=== PATIENT | male | born 1940 | race Caucasian/White ===

== ENCOUNTER 2022-09-05 01:47 | Emergency (ER) | payer MEDICARE, BC, SELFPAY ==
[2022-09-05 01:53] VITALS: BP 162/95; PULSE 57; RESP 18; TEMP 36.2; O2SAT 98; BMI 32.1
--- NOTE | 2022-09-05 02:01 | CRLHL7_ITS ---
For Patients: As a result of the Cures Act, medical imaging exams and procedure reports are released immediately into your electronic medical record. You may view this report before your referring provider. If you have questions, please contact your health care provider. INDICATION: Fall, impact right ear area, head injury TECHNIQUE: CT Head without i.v. contrast. Coronal and sagittal reformats were obtained. COMPARISON: None FINDINGS: CSF space: Unremarkable for age. Brain: No evidence of mass, acute infarction or hemorrhage is seen. No mass-effect or midline shift is seen. Mild diffuse cortical atrophy is noted. The brain parenchyma is otherwise normal in appearance with preservation of the hicks-white matter junction. Calvarium: The visualized paranasal sinuses are well aerated. The mastoid air cells are clear. The visualized orbits are grossly unremarkable. The calvarium is unremarkable in appearance with no fractures identified. IMPRESSION: 1. No evidence of acute infarction, intracranial hemorrhage, or mass-effect seen. Please note that all CT scans at this facility use dose modulation, iterative reconstruction, and/or weight-based dosing when appropriate to reduce radiation dose to as low as reasonably achievable. Dictated by: Robby Gipson MD @ 09/05/2022 02:57:29 (Electronically Signed)
--- NOTE | 2022-09-05 02:07 | ED.GENADULT ---
HPI - General Adult General Chief complaint: Laceration/Wound Stated complaint: fell out of bed hit face Time Seen by Provider: 09/05/22 01:50 Source: patient Mode of arrival: ambulatory Limitations: no limitations History of Present Illness HPI narrative: Generally healthy 82-year-old male presents today with laceration to the right side of the face. States that he was sleeping and fell out of bed. He states this has never happened to him before. He thinks that he was dreaming. On the way down to the ground he hit his head on the sharp corner of his bedside table. Patient does not take any medications, is not on any blood thinners. He is complaining of a headache. He denies any neck pain. Denies injury to the extremities. Past medical history significant for prostate cancer in remission, multiple joint surgeries. Related Data Home Medications Medication Instructions Recorded Confirmed No Known Home Medications 09/05/22 09/05/22 Allergies Allergy/AdvReac Type Severity Reaction Status Date / Time No Known Drug Allergies Allergy Verified 09/05/22 01:56 Review of Systems Status of ROS: Reports: 6 or more systems reviewed and unremarkable except as noted in History and below [facility] Social History Smoking Status: Never smoker Do you use any of these nicotine containing products: None How often do you have a drink containing alcohol: never How often do you have six or more drinks on one occasion: Never AUDIT-C Alcohol total score: 0 Non-prescribed substance use: denies use Exam Narrative: Exam Narrative: Overweight, well-developed patient in no acute distress. Alert and oriented x3. Answers questions appropriately. Mood and affect are appropriate. Thoughts are goal oriented and rational. No tangential or magical thinking noted. Patient speaks in full sentences without needing to catch his breath. Speech is not slurred or pressured. HEENT: Normocephalic. Pupils are equally round reactive to light. Extraocular muscles are intact. Conjunctivae are moist without any icterus noted. Moist mucous membranes. No trauma noted to the inside of the mouth. Neck is soft without discomfort. He has no tenderness to palpation of the cervical spine. He has full range of motion with flexion, extension, side way bending and rotation without any pain. Patient has a large v-shaped laceration to the anterior ear that extends from the top of the year all the way to the mid tragus there is a flap of skin there. He has another laceration anterior to the ear lobe. Both lacerations penetrate through the dermis into the subcutaneous tissue but do not penetrate through the subcutaneous tissue. Skin: Well perfused without any obvious rashes. Extremities: No acute ecchymosis or abrasions noted. He ambulates without difficulty. Const: Vital Signs, click to edit/add: Vital Signs - 24 hr 09/05/22 01:53 09/05/22 02:54 Temperature 97.1 F L Pulse Rate [Pulse Oximeter] 57 L 63 Respiratory Rate 18 16 Blood Pressure [Le ft Upper Arm] 162/95 H 147/89 H Pulse Oximetry 98 95 Oxygen Delivery Me thod Room Air Room Air Course Course Hospital Course: Head CT was ordered. Lacerations were anesthetized with 1% lidocaine. Twelve running sutures were placed on the superior laceration, 5 interrupted sutures were placed on the lower laceration. All with 4-0 Ethilon. Patient tolerated the procedure well. Head CT did not show any evidence of intracranial trauma. Vital Signs Vital signs: Initial Vital Signs Temperature 97.1 F L 09/05/22 01:53 Temperature Source Temporal Artery Scan 09/05/22 01:53 Pulse Rate 57 L 09/05/22 01:53 Respiratory Rate 18 09/05/22 01:53 Blood Pressure 162/95 H 09/05/22 01:53 Blood Pressure Mean 117 H 09/05/22 01:53 Blood Pressure Position Supine 09/05/22 01:53 Pulse Oximetry 98 09/05/22 01:53 Oxygen Delivery Method Room Air 09/05/22 01:53 Vital Signs Temperature 97.1 F L 09/05/22 01:53 Pulse Rate 57 L 09/05/22 01:53 Respiratory Rate 18 09/05/22 01:53 Blood Pressure 162/95 H 09/05/22 01:53 Pulse Oximetry 98 09/05/22 01:53 Oxygen Delivery Method Room Air 09/05/22 01:53 Temperature 97.1 F L 09/05/22 01:53 Pulse Rate 63 09/05/22 02:54 Respiratory Rate 16 09/05/22 02:54 Blood Pressure 147/89 H 09/05/22 02:54 Pulse Oximetry 95 09/05/22 02:54 Oxygen Delivery Method Room Air 09/05/22 02:54 Medical Decision Making [facility] Narrative Medical decision making narrative: 82-year-old male status post fall with 2 large lacerations to the anterior ear. We discussed wound hygiene, signs and symptoms of infection, reasons for follow-up, and suture removal in approximately 1 week with his primary care provider. We discussed the possibility of a concussion and concussion cares. Patient and had no other questions. Imaging Data CT scan - head: Attestation: I have reviewed the pertinent imaging results. Radiologist's impression: TECHNIQUE: CT Head without i.v. contrast. Coronal and sagittal reformats were obtained. COMPARISON: None FINDINGS: CSF space: Unremarkable for age. Brain: No evidence of mass, acute infarction or hemorrhage is seen. No mass-effect or midline shift is seen. Mild diffuse cortical atrophy is noted. The brain parenchyma is otherwise normal in appearance with preservation of the hicks-white matter junction. Calvarium: The visualized paranasal sinuses are well aerated. The mastoid air cells are clear. The visualized orbits are grossly unremarkable. The calvarium is unremarkable in appearance with no fractures identified. IMPRESSION: 1. No evidence of acute infarction, intracranial hemorrhage, or mass-effect seen. Discharge Plan Discharge Clinical Impression: Laceration, Fall Patient Disposition: Home, Self-Care Condition: Improved Additional Instructions: Keep the ear clean and dry. Okay to shower like he normally would but do not soak the lacerations such as going swimming. Watch for signs of infection which include redness of the area, draining of pus or worsening pain. If this occurs follow-up with your doctor right away or return to the ER. Follow-up with your primary care provider to have your sutures removed in approximately 1 week. Okay to take Tylenol for headaches. Prescriptions: No Action No Known Home Medications Follow Up/Referrals: Timmy Nova MD [Primary Care Provider] - Stand Alone Forms: [employer] Instructions
[2022-09-05 02:54] VITALS: BP 147/89; PULSE 63; RESP 16; O2SAT 95
--- NOTE | 2022-09-05 02:56 | PC.NURSE ---
bacitracin and dressing applied to sutured laceration
== END 2022-09-05 03:19 | disposition home or self-care (01) ==
PROVIDERS: Emergency Provider Family Medicine; PCP Internal Medicine
DX: S01.81XA Laceration without foreign body of other part of head, initial encounter (principal); W06.XXXA Fall from bed, initial encounter
CPT/HCPCS: 12001; 70450; 99283; 99284

== ENCOUNTER 2023-02-15 15:24 | Emergency (ER) | payer MEDICARE, BC, SELFPAY ==
[2023-02-15 15:35] VITALS: BP 128/104; PULSE 81; RESP 16; O2SAT 93; BMI 31.3
--- NOTE | 2023-02-15 15:41 | ED.GENADULT ---
HPI - General Adult General Chief complaint: Abdominal Pain Stated complaint: Bowel obstruction Time Seen by Provider: 02/15/23 15:41 History of Present Illness HPI narrative: abdominal pain all over. I feel uncomfortable feeling bloated . maybe 1 week per patient without bowel movement. not passing gas. no nausea or vomiting. unable to eat and drinking liquids only a little. 82-year-old man presenting to the emergency department with concern of abdominal pain all over. Has not had a bowel movement and says he has not passed any gas over the last week. Presented initially to clinic and primary care initiated evaluation with abdominal x-rays. Concern for ileus or bowel obstruction as discussed with us. I have reviewed these images. He does endorse having also some difficulty passing urine. Does not seem to want to come out unless he sits but then not as much as he might expect. Very little oral intake. No fever. Not really any nausea and no vomiting. Does have a history of prior abdominal surgeries, gestures he thinks a right-sided inguinal herniorrhaphy and did also have treatment for prostate cancer with prostatectomy. Related Data Home Medications Medication Instructions Recorded Confirmed ferrous sulfate 325 mg (65 mg 325 mg PO DAILY 02/15/23 02/15/23 iron) tablet (Iron (ferrous sulfate)) Allergies Allergy/AdvReac Type Severity Reaction Status Date / Time No Known Drug Allergies Allergy Verified 02/15/23 17:19 Review of Systems Status of ROS: Reports: 6 or more systems reviewed and unremarkable except as noted in History and below [facility] Medical History Abdominal pain ?R10.9 - Unspecified abdominal pain (ICD-10) Squamous cell carcinoma Social History Smoking Status: Never smoker Do you use any of these nicotine containing products: None How often do you have a drink containing alcohol: never How often do you have six or more drinks on one occasion: Never AUDIT-C Alcohol total score: 0 Non-prescribed substance use: denies use Little interest or pleasure in doing things: not at all Feeling down, depressed, or hopeless: not at all Exam Narrative: Exam Narrative: Pleasant. Transitions with apparent discomfort. Is breathing easily. Lungs are clear. Heart in regular rate and rhythm. No murmur rub or gallop appreciated. Abdomen with distant bowel sounds. Diffusely tympanitic. Moderately tender diffusely but more so in the left suprapubic area. Moving all extremities without difficulty. No edema. Const: Vital Signs, click to edit/add: Vital Signs - 24 hr 02/15/23 15:35 02/15/23 17:12 02/15/23 18:15 Temperature 98.6 F Pulse Rate [Pulse Oximeter] 81 60 67 Respiratory Rate 16 16 16 Blood Pressure Blood Pressure [Ri ght Upper Arm] 128/104 H 115/84 146/89 H Pulse Oximetry 93 93 90 Oxygen Delivery Me thod Room Air Room Air Room Air 02/15/23 18:17 Temperature Pulse Rate [Pulse Oximeter] Respiratory Rate 16 Blood Pressure 146/89 H Blood Pressure [Ri ght Upper Arm] Pulse Oximetry 91 Oxygen Delivery Me thod Documenting provider has reviewed patient's vital signs: yes Course Vital Signs Vital signs: Initial Vital Signs Pulse Rate 81 02/15/23 15:35 Respiratory Rate 16 02/15/23 15:35 Blood Pressure 128/104 H 02/15/23 15:35 Blood Pressure Mean 112 H 02/15/23 15:35 Blood Pressure Position Sitting 02/15/23 15:35 Pulse Oximetry 93 02/15/23 15:35 Oxygen Delivery Method Room Air 02/15/23 15:35 Vital Signs Pulse Rate 81 02/15/23 15:35 Respiratory Rate 16 02/15/23 15:35 Blood Pressure 128/104 H 02/15/23 15:35 Pulse Oximetry 93 02/15/23 15:35 Oxygen Delivery Method Room Air 02/15/23 15:35 Temperature 98.6 F 02/15/23 18:15 Pulse Rate 67 02/15/23 18:15 Respiratory Rate 16 02/15/23 18:17 Blood Pressure 146/89 H 02/15/23 18:17 Pulse Oximetry 91 02/15/23 18:17 Oxygen Delivery Method Room Air 02/15/23 18:15 Medications Administered Medications: Discontinued Medications Generic Name Dose Route Start Last Admin Trade Name Freq PRN Reason Stop Dose Admin Sodium Chloride 1,000 mls @ 1,000 mls/hr 02/15/23 15:57 02/15/23 18:18 0.9 % Sodium Chloride 1000 Ml IV 02/15/23 16:56 Infused .Q1H ONE Infusion Lorazepam 0.25 mg 02/15/23 18:55 02/15/23 19:15 Lorazepam 2 Mg/Ml Inj IVP 02/15/23 18:56 0.25 mg ONCE ONE Administration Morphine Sulfate 4 mg 02/15/23 15:57 02/15/23 16:19 Morphine 4 Mg/Ml Inj IVP 02/15/23 15:58 4 mg ONCE ONE Administration Medical Decision Making MDM Narrative Medical decision making narrative: Reviewed x-rays by my read looks to have moderately dilated colon diffusely. Postoperative changes about the prostate are also noted. Did feel he could use some pain medication. Given L normal saline as well as 4 mg morphine. Following administration of morphine pain is improved but did show some brief bradycardia. Will need to go to contrasted CT abdomen and pelvis for better clarification. Technique: Volumetric multidetector CT images of the abdomen and pelvis were obtained after the administration of intravenous contrast. 90 cc Isovue 370 low osmolar intravenous contrast Comparison: None available. Findings: There is basilar atelectasis and parenchymal scar. There are cystic changes of the liver with moderate hepatomegaly and hepatic steatosis. The portal vein is patent. The gallbladder is unremarkable without evidence of radiopaque calculus. There is no significant common biliary ductal dilatation or abrupt cut off. The spleen is normal in enhancement and size. There is an intrathoracic stomach with mild thickening of the gastric antrum gastric rugal folds. There is moderate pancreatic atrophy. The adrenal glands are unremarkable. The kidneys demonstrate extensive parapelvic cystic changes with otherwise preserved cortical medullary differentiation. There is no distal obstructive calculus. There is marked focal sick and pericolonic inflammation of the mid sigmoid colon with focal stricture. There is marked distention of the proximal colon with pseudo pneumatosis in the cecum. The appendix is unremarkable. There is no significant mesenteric, retroperitoneal, or pelvic sidewall lymph nodes. The aorta is nonaneurysmal. There is no significant atherosclerotic disease appreciated. There is prior prostatectomy. There is no free fluid or free air. There is a small fat containing umbilical hernia. The lumbar vertebral body heights are grossly maintained with endplate Schmorl`s defects and subchondral cystic changes. Degenerative changes of the sacroiliac joints are appreciated. Impression: Marked focal thickening and pericolonic inflammation of the midsigmoid colon with demonstration of a stricture. There is marked distension of the proximal colon likely representing a large bowel obstruction. Overall, findings are concerning for a developing colonic malignancy versus a developing inflammatory stricture. Correlate with direct visualization if there remains persistent clinical concern for malignancy. Basilar atelectasis and parenchymal scar. Intrathoracic stomach. Cystic changes of the liver and kidneys. Mr. Hagen notes that he has had a colonoscopy he thinks 5 or 6 years ago. He denies ever having had polyps. I did discuss these findings with our general surgeon on-call given that we do not have any bed availability here till the morning. Mr. Hagen would just as soon go home than be admitted anywhere else. 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 Recommending more urgent care. Looking for hospitalization. Does not feel he needs more pain medication but admittedly becoming more anxious. Some of his anxiety I think is represented by biting his lip. Will treat with low-dose lorazepam. Have been calling around for beds. [facility] thank[facility] has bed availability. Dr. Delvalle accepting. Anticipating transport Lab Data Lab results reviewed: Yes I reviewed the patient's lab results Labs: Lab Results 02/15/23 Range/Units Unknown WBC 11.36 H (4.50-11.00) K/uL RBC 5.06 (4.30-5.90) m/uL Hgb 15.6 (13.5-17.5) gm/dL Hct 47.9 (37.0-53.0) % MCV 95 (80-100) fL MCH 31 (26-34) pg MCHC 33 (32-36) gm/dL RDW Coeff of Jose L 12.1 (11.5-15.5) % Plt Count 297 (140-440) K/uL Neut % (Auto) 75.6 H (42.0-72.0) % Lymph % (Auto) 10.5 L (20-44) % [place] % (Auto) 12.7 H (0.0-11.0) % Eos % (Auto) 0.6 (0.0-7.0) % Baso % (Auto) 0.2 (0.0-3.0) % Neut # (Auto) 8.60 H (1.7-7.0) K/uL Lymph # (Auto) 1.20 (0.90-2.90) K/uL [place] # (Auto) 1.40 H (0.00-0.90) K/UL Eos # (Auto) 0.10 (0.00-0.50) K/uL Baso # (Auto) 0.00 (0.00-0.30) K/uL Abs Immat Gran (auto) 0.00 (0.00-0.30) K/uL Imm/Tot Granulo (auto) 0.4 % Sodium 138 (135-149) mmol/L Potassium 3.3 L (3.6-5.1) mmol/L Chloride 102 (96-114) mmol/L Carbon Dioxide 23 (20-32) mmol/L Anion Gap 13 (7-15) mEq/L BUN 20 (7-30) mg/dL Creatinine 1.1 (0.5-1.5) mg/dL Estimated Creat Clear 49.24 Estimated GFR 67 ml/min Glucose 107 (60-115) mg/dL Calcium 9.2 (8.4-10.6) mg/dL Magnesium 2.1 (1.5-2.6) mg/dL ECG Data Attestation: I personally reviewed and interpreted this ECG as follows: (Normal sinus rhythm rate of 65. ) Discharge Plan Discharge Clinical Impression: Stricture of sigmoid colon, Colonic obstruction, Dehydration Patient Disposition: Xfer Other Condition: Stable Prescriptions: No Action ferrous sulfate [Iron (ferrous sulfate)] 325 mg (65 mg iron) tablet 325 mg PO DAILY Follow Up/Referrals: Timmy Nova MD [Primary Care Provider] - Stand Alone Forms: [facility] Info Instructions
--- NOTE | 2023-02-15 15:57 | CRLHL7_ITS ---
For Patients: As a result of the Century Cures Act, medical imaging exams and procedure reports are released immediately into your electronic medical record. You may view this report before your referring provider. If you have questions, please contact your health care provider. Indication: Dilated small bowel obstruction Technique: Volumetric multidetector CT images of the abdomen and pelvis were obtained after the administration of intravenous contrast. 90 cc Isovue 370 low osmolar intravenous contrast Comparison: None available. Findings: There is basilar atelectasis and parenchymal scar. There are cystic changes of the liver with moderate hepatomegaly and hepatic steatosis. The portal vein is patent. The gallbladder is unremarkable without evidence of radiopaque calculus. There is no significant common biliary ductal dilatation or abrupt cut off. The spleen is normal in enhancement and size. There is an intrathoracic stomach with mild thickening of the gastric antrum gastric rugal folds. There is moderate pancreatic atrophy. The adrenal glands are unremarkable. The kidneys demonstrate extensive parapelvic cystic changes with otherwise preserved cortical medullary differentiation. There is no distal obstructive calculus. There is marked focal sick and pericolonic inflammation of the mid sigmoid colon with focal stricture. There is marked distention of the proximal colon with pseudo pneumatosis in the cecum. The appendix is unremarkable. There is no significant mesenteric, retroperitoneal, or pelvic sidewall lymph nodes. The aorta is nonaneurysmal. There is no significant atherosclerotic disease appreciated. There is prior prostatectomy. There is no free fluid or free air. There is a small fat containing umbilical hernia. The lumbar vertebral body heights are grossly maintained with endplate Schmorl`s defects and subchondral cystic changes. Degenerative changes of the sacroiliac joints are appreciated. Impression: Marked focal thickening and pericolonic inflammation of the midsigmoid colon with demonstration of a stricture. There is marked distension of the proximal colon likely representing a large bowel obstruction. Overall, findings are concerning for a developing colonic malignancy versus a developing inflammatory stricture. Correlate with direct visualization if there remains persistent clinical concern for malignancy. Basilar atelectasis and parenchymal scar. Intrathoracic stomach. Cystic changes of the liver and kidneys. Please note that all CT scans at this facility use dose modulation, iterative reconstruction, and/or weight-based dosing when appropriate to reduce radiation dose to as low as reasonably achievable. Dictated by Tanvir Gilliland MD @ 02/15/2023 6:01:57 PM (Electronically Signed)
[2023-02-15 16:16] LABS: Basophils Percent Auto 0.2 % (0.0-3.0); Eosinophils Percent Auto 0.6 % (0.0-7.0); Hematocrit 47.9 % (37.0-53.0); Hemoglobin* 15.6 gm/dL (13.5-17.5); Immature Granulocytes Pct Auto 0.4 %; Lymphocytes Percent Auto 10.5 % (20-44); Mean Corpuscular HGB Conc 33 gm/dL (32-36); Mean Corpuscular Hemoglobin 31 pg (26-34); Mean Corpuscular Volume 95 fL (80-100); Monocytes Percent Auto 12.7 % (0.0-11.0); Neutrophils Percent Auto 75.6 % (42.0-72.0); Platelet Count* 297 K/uL (140-440); RDW Coefficient of Variation % 12.1 % (11.5-15.5); Red Blood Count 5.06 m/uL (4.30-5.90); White Blood Count* 11.36 K/uL (4.50-11.00)
[2023-02-15 16:17] LABS: Slide Review Reflex No
[2023-02-15] MEDS: MORPHINE 4 MG/ML INJ IVP (16:19)
[2023-02-15 16:37] LABS: Chloride* 102 mmol/L (96-114); Potassium* 3.3 mmol/L (3.6-5.1); Sodium* 138 mmol/L (135-149)
[2023-02-15 16:40] LABS: Anion Gap 13 mEq/L (7-15); Blood Urea Nitrogen* 20 mg/dL (7-30); Carbon Dioxide* 23 mmol/L (20-32); Creatinine* 1.1 mg/dL (0.5-1.5); Est. Creatinine Clearance* 49.24; Estimated Glomerular Filt Rate 67 ml/min; Glucose* 107 mg/dL (60-115); Magnesium* 2.1 mg/dL (1.5-2.6)
[2023-02-15 16:41] LABS: Calcium* 9.2 mg/dL (8.4-10.6)
[2023-02-15] MEDS: 0.9 % SODIUM CHLORIDE 1000 ml 1,000 ML IV (16:59)
[2023-02-15 17:12] VITALS: BP 115/84; PULSE 60; RESP 16; O2SAT 93
[2023-02-15 18:15] VITALS: BP 146/89; PULSE 67; RESP 16; TEMP 37; O2SAT 90
[2023-02-15 18:17] VITALS: BP 146/89; RESP 16; O2SAT 91
[2023-02-15] MEDS: LORazepam 2 MG/ML inj 0.25 MG IVP (19:15)
[2023-02-15 20:00] VITALS: BP 146/89; PULSE 62; RESP 16; O2SAT 91
[2023-02-15] MEDS: fentaNYL 100 MCG/2 ML inj 25 MCG IVP (22:11)
--- NOTE | 2023-02-15 22:20 | ED.NURSE ---
report to nurse at [facility] transferred via [facility].
== END 2023-02-15 22:00 | disposition other institution (70) ==
PROVIDERS: Emergency Provider Family Medicine; PCP Internal Medicine
DX: K56.699 Other intestinal obstruction unspecified as to partial versus complete obstruction (principal); K56.609 Unspecified intestinal obstruction, unspecified as to partial versus complete obstruction; E86.0 Dehydration
CPT/HCPCS: 36415; 74177; 80048; 83735; 85025; 93005; 96361; 96374; 96376; 99284; 99285; J2060; J2270; J3010; J7030; Q9967

== ENCOUNTER 2023-02-15 22:00 | Outpatient (CLI) | payer MEDICARE, BC, SELFPAY | END 2023-02-15 22:01 | disposition home or self-care (01) | LOC: AMB 02-16 10:46 | PROVIDERS: PCP Internal Medicine; Visit Provider Family Medicine | DX: K56.609 Unspecified intestinal obstruction, unspecified as to partial versus complete obstruction (principal) | CPT/HCPCS: A0425; A0427 ==

== ENCOUNTER 2023-06-21 08:40 | Outpatient (CLI) | payer MEDICARE, BC, SELFPAY ==
--- OUTSIDE RECORDS SUMMARY | 2023-06-21 08:42 | XMS_ITS | Clinical Summary ---
Author Name Unknown Organization [facility] Address [address] [place] [address] Care Team Providers Care Acid Filler Name Role Phone Timmy Nova MD Primary Care Provider +1- [phone] Source Comments You are receiving this document as you are listed as the primary care provider,follow-up provider, or the patient has been referred to you for consultation.This is in compliance with the Medicare and[facility] EHR Incentive Program,which states Providers who transition their patient to another setting of careor provider of care or refers their patient to another provider of care shouldprovide summary care record for each transition of care or referral. [facility] Allergies No known active allergies Medications Medication Sig Dispensed Refills Start Date End Date Status ALLOPURINOL OR Take 100 mg by mouth daily (every 24 hours). 06/05/2013 Active amoxicillin (AKA AMOXIL) 500 MG capsule Take 4 capsules ( 2 GRAMS) 1 HOUR BEFORE DENTAL APPOINTMENT 12 capsule 0 09/11/2014 Active oxyCODONE (ROXICODONE) 5 MG immediate release tablet Take 1 Tablet (5 mg) by mouth every 6 hours as needed. Active acetaminophen (TYLENOL) 325 MG tablet Take 2 Tablets (650 mg) by mouth every 4 hours as needed. 02/21/2023 Active FERROUS SULFATE OR Take 1 Tablet by mouth daily. Active docusate sodium (COLACE) 100 MG capsule Take 1 Capsule (100 mg) by mouth two times a day. 180 Capsule 02/25/2023 05/26/2023 ciprofloxacin (CIPRO) 500 MG tablet Take 1 Tablet (500 mg) by mouth once for 1 dose. Take at 8:00 pm the night prior to surgery. 1 Tablet 06/13/2023 06/13/2023 metroNIDAZOLE (FLAGYL) 500 MG tablet Take 1 Tablet (500 mg) by mouth once for 1 dose. Take at 8:00 pm the night prior to surgery. 1 Tablet 06/13/2023 06/13/2023 Active Problems Problem Noted Date Diagnosed Date Acute blood loss anemia 12/25/2013 Encounters Date Type Department Care Team Description 06/13/2023 Notes/Orders Carlos Faria General Surgery [facility] [place] [address] Simeon Graff MD 06/09/2023 11:00 AM CDT Nursing Visit Dunia Jara [place] [address] General Surgery [address] [place] [address] Nurse, Rossi urg Colostomy care (HRC) (Primary Dx) from Last 3 Months Immunizations Name Administration Dates Next Due Flu Vac Preserv Free (3+yrs) 12/11/2013 PPSV23 (Pneumovax) 03/07/2011 Social History Tobacco Use Types Packs/Day Years Used Date Smoking Tobacco: Never Smokeless Tobacco: Never Sex and Gender Information Value Date Recorded Sex Assigned at Not on file Gender Identity Not on file Sexual Orientation Not on file Last Filed Vital Signs Vital Sign Reading Time Taken Comments Blood Pressure 126/80 12/31/2013 1:06 PM CDT Pulse 76 12/31/2013 1:06 PM CDT Temperature 37.1 ??C (98.8 ??F) 12/31/2013 1:06 PM CD T Respiratory Rate 16 12/26/2013 7:25 AM CDT Oxygen Saturation 96% 12/26/2013 7:25 AM CDT Inhaled Oxygen Concentration - - Weight 88.6 kg (195 lb 6.4 oz) 12/31/2013 1:06 P M CDT Height 170.2 cm (5' 7) 12/21/2013 9:14 AM CDT Body Mass Index 30.6 12/21/2013 9:14 AM CDT Plan of Treatment Upcoming Encounters Date Type Department Care Team (Late st Contact Info) Description 06/22/2023 1:00 PM CDT Appointment Carlos Faria General Surgery [facility]. [place] [address] Simeon Graff MD [address] [place] [address] 07/04/2023 11:00 AM CDT Appointment Dunia Sharma [address] General Surgery [address] [place] [address] Simeon Graff MD [address] [place] [id number] Health Maintenance Due Date Last Done Comments Medicare Annual Wellness Visit 1940 DTaP/Tdap/Td (2 - Tdap) 06/06/2022 06/06/2012 Pneumococcal 65+ Yrs Completed 12/26/2014, 03/10/2012, 03/07/2011 Zoster/Shingles Completed 01/17/2019, 11/08/2018 Influenza Completed 12/07/2022, 11/05, 11/26/2020, Additional history exists COVID-19 Vaccine Completed 01/21/2023, 12/2022, 11/23/2021, Additional history exists HepA Aged Out No longer eligi ble based on patient's age to complete this topic HepB Aged Out No longer eligi ble based on patient's age to complete this topic Hib Aged Out No longer eligi ble based on patient's age to complete this topic IPV (Polio) Aged Out No longer eligi ble based on patient's age to complete this topic MCV4 Aged Out No longer eligi ble based on patient's age to complete this topic Advance Directives Documents on File Type Date Recorded Patient Clerical Aide Expl anation Advance Directive/Living Will/Durable Power of Attny on file/POLST PN * Full Code (Latest Code Status on File) Date Activated Date Inactivated Comments 12/24/2013 4:06 PM 12/26/2013 5:26 PM Care Teams Acid Filler Relationship Specialty Start Date End Date Timmy Nova MD [address] [place] [address] PCP - General 06/05/13
--- OUTSIDE RECORDS SUMMARY | 2023-06-21 08:42 | XMS_ITS | Clinical Summary ---
Author Name Unknown Organization [facility] Address [place], [place] [address] Care Team Providers Care Medical Policy Specialist Name Role Phone Timmy Nova MD Primary Care Provider Allergies No known active allergies Medications Medication Sig Dispensed Refills Start Date End Date Status ferrous sulfate 325 mg delayed release tablet Take 325 mg by mouth once daily with a meal. 0 08/09/2013 Active acetaminophen (TYLENOL) 325 mg tabletIndications :Abdominal pain, unspecified abdominal location Take 2 Tablets (650 mg) by mouth every 4 hours if needed for Pain (For mild pain.). Max acetaminophen dose: 4000mg in 24 hrs. 40 Tablet 02/21/2023 Active ALPRAZolam (XANAX) 0.5 mg tablet Take 0.5 mg by mouth at bedtime if needed. Active ALPRAZolam (XANAX) 0.5 mg tablet Take 0.5 mg by mouth 2 times daily if needed. Active oxyCODONE (ROXICODONE) 5 mg immediate release tabletIndications :Abdominal pain, unspecified abdominal location Take 1 Tablet (5 mg) by mouth every 4 hours if needed for Pain. 15 Tablet 02/21/2023 4 Discontinue d(*Patient states no longer taking) Active Problems Problem Noted Date Diagnosed Date Abdominal pain 02/15/2023 Lumbar facet arthropathy 08/09/2013 Lumbar spinal stenosis 08/09/2013 DDD (degenerative disc disease), lumbar 08/10/19 14 Social History Tobacco Use Types Packs/Day Years Used Date Smoking Tobacco: Never Passive Smoke Exposure: Never Smokeless Tobacco: Never Tobacco Cessation:Counseling Given: Not Answered Alcohol Use Standard Drinks/Week Comments Yes 0 (1 standard drink = 0.6 oz pur e alcohol) rare Social Connections Answer Date Recorded Frequency of Communication with Friends and Fami ly 0 02/16/2023 Financial Resource Strain Answer Date R ecorded Difficulty of Paying Living Expenses 3 02/16/2023 Difficulty of Paying Living Expenses Not on file 02/16/2023 Food Insecurity Answer Date Recorded Worried About Running Out of Food in the Last Ye ar 1 02/16/2023 Transportation Needs Answer Date Record ed Lack of Transportation (Medical) 1 02/16/2023 Housing Stability Answer Date Recorded Unable to Pay for Housing in the Last Year 1 02/16/2023 Sex and Gender Information Value Date Recorded Sex Assigned at Not on file Gender Identity Not on file Sexual Orientation Not on file Obstetrics History Last Filed Vital Signs Vital Sign Reading Time Taken Comments Blood Pressure 133/80 02/21/2023 12:00 PM SAP ABAP DEVELOPER Pulse 61 02/21/2023 12:00 PM SAP ABAP DEVELOPER Temperature 36.6 ??C (97.9 ??F) 02/21/2023 12:[address] Respiratory Rate 18 02/21/2023 12:00 PM SAP ABAP DEVELOPER Oxygen Saturation 93% 02/21/2023 12:00 PM SAP ABAP DEVELOPER Inhaled Oxygen Concentration - - Weight 85.3 kg (188 lb 1.9 oz) 06/13/2023 5:21 P M CDT Height 170.2 cm (5' 7) 06/13/2023 5:21 PM CDT Body Mass Index 29.46 06/13/2023 5:21 PM CDT Plan of Treatment Upcoming Encounters Date Type Department Care Team (Latest Contact Info) Description 06/22/2023 12:10 PM CDT Hospital Encounter [address] [address] Simeon Graff MD [address] [place] [address] 06/22/2023 12:10 PM CDT - 06/22/2023 4:10 PM CDT Surgery [address] [place] [id number] Simeon Graff MD [address] [place] [id number] ROBOTIC ASSISTED Laparscopic COLOSTOMY Closure with ERP Scheduled Procedures Name Priority Associated Diagnoses Date/Ti me ROBOTIC ASSISTED COLOSTOMY TAKEDOWN XI diverticulitis 06/22/2023 12:10 PM CDT CYSTOSCOPY PLACEMENT URETERA L STENT FOR INTRAOP PROCEDURE diverticulitis 06/22/2023 12:10 PM CDT Health Maintenance Due Date Last Done Comments Tdap 1952 Depression screening for age 12+ 1953 BMI (ht and wt on same day) for age 18+ 1959 Tetanus booster 1961 Zoster (shingles) series for age 50+ (1 of 2) 1991 Pneumococcal series for age 65+ (1 of 1 - PCV) 2006 Influenza for age 65+ 11/06/2023 COVID-19 vaccine series Completed 01/22/20, 09/13/2022, 11/23/2021, Additional history exists Advance Directives * Full Code (Latest Code Status on File) Date Activated Date Inactivated Comments 02/15/2023 11:44 PM 02/21/2023 6:10 PM Question Answer Comments Code Status Discussion: Reviewed Preferences Care Teams Medical Policy Specialist Relationship Specialty Start Date End Date Timmy Nova MD [address] [place] [address] [facility] - General 08/09/13
--- OUTSIDE RECORDS SUMMARY | 2023-06-21 08:42 | XMS_ITS | Encounter Summary ---
Author Name Unknown Organization [facility] Address [address] [place] [address] Care Team Providers Care Projection Printer Name Role Phone Timmy Nova MD Primary Care Provider +1- [phone] Reason for Visit * Reason Comments Nurse Visit Encounter Details Date Type Department Care Team (Late st Contact Info) Description 06/09/2023 11:00 AM CDT Nursing Visit [facility] [address] General Surgery [address] [place] [address] Nurse, Rossi Mota Colostomy care (HRC) (Primary Dx) Social History Tobacco Use Types Packs/Day Years Used Date Smoking Tobacco: Never Smokeless Tobacco: Never Sex and Gender Information Value Date Recorded Sex Assigned at Not on file Gender Identity Not on file Sexual Orientation Not on file documented as of this encounter Progress Notes * Sabine Estrada RN - 06/09/2023 11:00 AM CDT Pre-operative teaching completed per General Surgery department protocol for colostomy closure. Reviewed surgery packet and post-operative instructions for colostomy closure. Advised patient to follow colonoscopy instructions. Following colonoscopy, continue on clear liquids. The night before surgery, take the [address] Graff. Four hours prior to surgery, drink the 10 oz bottle of mag citrate. Before leaving for surgery, do the fleet enema. Discussed using the chlorhexadine wipes. Sent 3 packets with 2 wipes in each packet with the patient. Patient and understood all instructions. Medication changes: Discuss at pre-op. Do not take any aspirin, ibuprofen or blood thinners 5 days prior to surgery. Pain Management: 400-600mg of Ibuprofen every 6 hours. May alternate with Acetaminophen 650-1000 mgevery 6 hours. Use opioid only if ibuprofen and acetaminophen are not controlling your pain. Icing also encouraged 20 minutes out of every hour while awake. Lifting restrictions: Will be discussed at discharge Remove outer bandages: 48 hrs after surgery. May shower at that time. No soaking under water until incisions are healed. Please call if any questions. Dunia [facility], Carlos Jose, Registered Nurse [phone] documented in this encounter Plan of Treatment Upcoming Encounters Date Type Department Care Team (Late st Contact Info) Description 06/22/2023 1:00 PM CDT Appointment [facility] General Surgery [address] [place] [address] Simeon Graff MD 14[address] [place], [place] [id number] 07/04/2023 11:00 AM CDT Appointment Dunia Jara [place] [address] General Surgery [address] [place] [phone] Simeon Graff MD 14[address] [place] [address] documented as of this encounter Visit Diagnoses Diagnosis Colostomy care (HRC)- Primary Attention to colostomy documented in this encounter Care Teams Projection Printer Relationship Specialty Start Date End Date Timmy Nova MD [address] [place] [address] PCP - General 06/05/13 documented as of this encounter
--- OUTSIDE RECORDS SUMMARY | 2023-06-21 08:42 | XMS_ITS | Encounter Summary ---
Author Name Unknown Organization [facility] Address [address] [place] [address] Care Team Providers Care Technology Teacher Name Role Phone Timmy Nova MD Primary Care Provider +1- [phone] Encounter Details Date Type Department Care Team (Late st Contact Info) Description 06/13/2023 Notes/Orders Carlos Wetzel General Surgery 1515 [place] [address] Simeon Graff MD 14[address] [place] [address] Social History Tobacco Use Types Packs/Day Years Used Date Smoking Tobacco: Never Smokeless Tobacco: Never Sex and Gender Information Value Date Recorded Sex Assigned at Not on file Gender Identity Not on file Sexual Orientation Not on file documented as of this encounter Plan of Treatment Upcoming Encounters Date Type Department Care Team (Late st Contact Info) Description 06/22/2023 1:00 PM CDT Appointment Carlos Faria General Surgery 1515 [place] [address] Simeon Graff MD 1415 [place] [address] 07/04/2023 11:00 AM CDT Appointment [facility] [place] [address] General Surgery [address] [place] [phone] Simeon Graff MD [address] [place] [address] documented as of this encounter Visit Diagnoses Not on filedocumented in this encounter Care Teams Technology Teacher Relationship Specialty Start Date End Date Timmy Nova MD [address] [place] [address] PCP - General 06/05/13 documented as of this encounter
--- NOTE | 2023-06-21 09:59 | W.ANESCHARGE ---
Anesthesia Charges Start Date/Time Anesthesia Start Date: 06/21/23 Anesthesia Start Time: 09:20 Stop Date/Time Anesthesia Stop Date: 06/21/23 Anesthesia Stop Time: 09:56
--- NOTE | 2023-06-21 12:23 | W.ANESCHARGE ---
Anesthesia Charges Start Date/Time Anesthesia Start Date: 06/21/23 Anesthesia Start Time: 09:20 Stop Date/Time Anesthesia Stop Date: 06/21/23 Anesthesia Stop Time: 09:56 Summary Extremes of Age - Over 70 or under 1: MDA
== END 2023-06-21 08:41 | disposition home or self-care (01) ==
LOC: OP CLINIC 08:41
PROVIDERS: PCP Internal Medicine; Visit Provider Surgery
DX: Z01.818 Encounter for other preprocedural examination (principal); K63.5 Polyp of colon; Z90.49 Acquired absence of other specified parts of digestive tract
CPT/HCPCS: 00811; 44394; 45330; 88305; 99100; J2704

== ENCOUNTER 2023-10-04 11:29 | Emergency (ER) | payer MEDICARE, BC, SELFPAY ==
[2023-10-04 11:37] VITALS: BP 168/88; PULSE 59; RESP 18; TEMP 36.2; O2SAT 99; BMI 31.5
--- NOTE | 2023-10-04 12:57 | ED_ITS ---
HPI - General Adult General Date Seen: 10/04/23 Chief complaint: Constipation Stated complaint: constipated Time Seen by Provider: 10/04/23 12:31 History of Present Illness HPI narrative: 83-year-old gentleman with a past medical history of colostomy and colonic d iverticulitis with previous bowel obstruction, he had ostomy takedown in June of this year. He presents to the ER today accompanied by his for evaluation of rectal fullness and discomfort and inability to pass a bowel movement. Since his colostomy takedown June he has had generally regular normal bowel movements. For the past few days he has began to notice that he has been having to strain with bowel movements have been they have been smaller than normal. Since yesterday he is feeling a lot of pain like he has stool in his rectal vault but has not been able to pass. He is concerned he may be developing an obstruction. He is not having any anterior abdominal pain. No bloating. No nausea or vomiting. Urination has been normal. No fever. No blood in his stools. Related Data Home Medications ?Medication ?Instructions ?Recorded ?Confirmed No Known Home Medications 10/04/23 10/04/23 Allergies Allergy/AdvReac Type Severity Reaction Status Date / Time No Known Drug Allergies Allergy Verified 06/13/23 10:06 [facility] Medical History (Updated 10/04/23 @ 13:51 by Tucker Peralta MD) Physician orders for life-sustaining treatment (POLST) form indicates patient wish for full code resuscitation status ?Z78.9 - Other specified health status (ICD-10) Diverticulitis of colon with perforation ?K57.20 - Diverticulitis of large intestine with perforation and abscess without bleeding (ICD-10) Insomnia ?G47.00 - Insomnia, unspecified (ICD-10) Bowel obstruction ?K56.609 - Unspecified intestinal obstruction, unspecified as to partial versus complete obstruction (ICD-10) Abdominal pain ?R10.9 - Unspecified abdominal pain (ICD-10) Squamous cell carcinoma Social History Smoking Status: Never smoker Do you use any of these nicotine containing products: None How often do you have a drink containing alcohol: never How often do you have six or more drinks on one occasion: Never AUDIT-C Alcohol total score: 0 Non-prescribed substance use: denies use Little interest or pleasure in doing things: not at all Feeling down, depressed, or hopeless: not at all Exam Narrative: Exam Narrative: Constitutional: Appears well-developed and well-nourished. Alert. Conversant. Non toxic. HENT: Head: Atraumatic. Nose: Nose normal. Mouth/Throat: Oral mucosa is clear and moist. no trismus. Pharynx normal. Eyes: Conjunctivae normal. EOM normal. Pupils equal, round, and reactive to light. No scleral icterus. Neck: Normal range of motion. Neck supple. No tracheal deviation present. Cardiovascular: Normal rate, regular rhythm. No gallop. No friction rub. No murmur heard. Symmetric radial artery pulses Pulmonary/Chest: Effort normal. No stridor. No respiratory distress. No wheezes. No rales. No rhonchi . No tenderness. Abdominal: Soft. Bowel sounds normal. No distension. No mass. No tenderness. No rebound. No guarding. Rectal: Patient placed in left lateral decubitus position. External rectum normal. Lubricated digital rectal exam reveals a fairly large soft stool mass in the rectal vault. No other masses. I am not able to digitally extract this mass but I am able to break it up. Patient has discomfort with the exam. No bleeding. Musculoskeletal: RUE: Normal range of motion. No tenderness. No deformity LUE: Normal range of motion. No tenderness. No deformity RLE: Normal range of motion. No edema. No tenderness. No deformity LLE: Normal range of motion. No edema. No tenderness. No deformity Neurological: Alert and oriented to person, place, and time. Normal strength. CN II-VII intact. No sensory deficit. GCS eye subscore is 4. GCS verbal subscore is 5. GCS motor subscore is 6. Normal coordination Skin: Skin is warm and dry. No rash noted. No pallor. Normal capillary refill. Psychiatric: Normal mood. Normal affect. Const: Vital Signs, click to edit/add: Vital Signs - 24 hr 10/04/23 11:37 Temperature 97.1 F L Pulse Rate [Right Pulse Oximeter] 59 L Respiratory Rate 18 Blood Pressure [Ri ght Upper Arm] 168/88 H Pulse Oximetry 99 Oxygen Delivery Me thod Room Air Course Course ED Course: Recheck-had a large bowel movement in the bathroom after his rectal exam. Feeling better. He is comfortable discharging home with his . Vital Signs Vital signs: Initial Vital Signs Temperature 97.1 F L 10/04/23 11:37 Temperature Source Temporal Artery Scan 10/04/23 11:37 Pulse Rate 59 L 10/04/23 11:37 Respiratory Rate 18 10/04/23 11:37 Blood Pressure 168/88 H 10/04/23 11:37 Blood Pressure Mean 114 H 10/04/23 11:37 Blood Pressure Position Sitting 10/04/23 11:37 Pulse Oximetry 99 10/04/23 11:37 Oxygen Delivery Method Room Air 10/04/23 11:37 Vital Signs Temperature 97.1 F L 10/04/23 11:37 Pulse Rate 59 L 10/04/23 11:37 Respiratory Rate 18 10/04/23 11:37 Blood Pressure 168/88 H 10/04/23 11:37 Pulse Oximetry 99 10/04/23 11:37 Oxygen Delivery Method Room Air 10/04/23 11:37 Temperature 97.1 F L 10/04/23 11:37 Pulse Rate 59 L 10/04/23 11:37 Respiratory Rate 18 10/04/23 11:37 Blood Pressure 168/88 H 10/04/23 11:37 Pulse Oximetry 99 10/04/23 11:37 Oxygen Delivery Method Room Air 10/04/23 11:37 Medical Decision Making MDM Narrative Medical decision making narrative: Very pleasant 83-year-old gentleman with a past surgical history including partial below colon resection for bowel obstruction in last February, colostomy, and then colostomy takedown in June of this year. He presents to the ER today with rectal fullness and discomfort and inability to pass bowel gas or stool. He was concerned about possible problem with his anastomosis or obstruction. Differential would also include obstipation, stool impaction, bowel obstruction, proctitis, among others. Rectal exam did reveal a very large but fairly soft stool of ball in the rectal vault. I broke it up during digital exam and subsequently the patient was able to pass the stool. With this he notes tremendous improvement and relief. He is comfortable discharging to home. He already has a plan in place to keep his stools soft and regular with MiraLax. He and his are well-versed with this. At this point using shared decision making we decided to hold off on any further workup such as CT imaging or labs given resolution of his symptoms after passing his stool. Precautions for return to the ER reviewed. Discharge Plan Discharge Clinical Impression: Intestinal impaction, Acute constipation Patient Disposition: Home, Self-Care Condition: Stable Instructions: Constipation (ED) Additional Instructions: As we discussed, use MiraLax as needed to help keep her stools soft and regular. If you run into trouble with increasing rectal pain, abdominal pain, vomiting, fever, or any problems, please come back to the ER right away to be rechecked. Prescriptions: No Action No Known Home Medications Follow Up/Referrals: Timmy Nova MD [Primary Care Provider] - Stand Alone Forms: Ta[employer] Info Instructions
--- OUTSIDE RECORDS SUMMARY | 2023-10-04 13:34 | XMS_ITS | Encounter Summary ---
Author Organization [facility] Address [address] [place] [address] Care Team Providers Care Temperature Control Inspector Name Role Phone Timmy Nova MD Primary Care Provider +1- [phone] Reason for Visit * Reason Comments Routine Post-op Call Encounter Details Date Type Department Care Team (Late st Contact Info) Description 06/27/2023 Telephone [facility] 1515 General Surgery 1515 [facility] [place] [address] Christine Staton, RN Routine Post-op Call Social History Tobacco Use Types Packs/Day Years Used Date Smoking Tobacco: Never Smokeless Tobacco: Never Sex and Gender Information Value Date Recorded Sex Assigned at Not on file Gender Identity Not on file Sexual Orientation Not on file documented as of this encounter Nursing Notes * Christine Staton, RN - 06/27/2023 9:39 AM CDT Post-Operative General Surgery Phone Calls Date of Surgery: 06-22-23 Type of Surgery: Robotic Assisted laparoscopic colostomy closure . Appearance of Incision/Dressing: Clean and dry with steri strips in place. Keeping dressing in place over dawit/ostomy site. Current Activity Level: up and around the house. Bowel/Bladder Function: Patient reports no problems. Tolerating Food/Fluids: Patient reports no problems. Not much of an appetite which we discussed is normal. General Level of Well Being: No complaints per patient. Troubles sleeping so took a narcotic to help sleep otherwise managing with ibuprofen/tylenol. Other: reminded of post op visit documented in this encounter Plan of Treatment Not on file documented as of this encounter Visit Diagnoses Not on filedocumented in this encounter Care Teams Temperature Control Inspector Relationship Specialty Start Date End Date Timmy Nova MD [address] [place] [address] PCP - General 06/05/13 documented as of this encounter
--- OUTSIDE RECORDS SUMMARY | 2023-10-04 13:34 | XMS_ITS | Clinical Summary ---
Author Organization [facility] Address [place], [place] [address] Care Team Providers Care Bridge Gang Worker Name Role Phone Timmy Nova MD Primary Care Provider Allergies No known active allergies Medications Medication Sig Dispensed Refills Start Date End Date Status ferrous sulfate 325 mg delayed release tablet Take 325 mg by mouth once daily with a meal. 0 08/09/2013 Active acetaminophen (TYLENOL) 325 mg tabletIndications:Ab dominal pain, unspecified abdominal location Take 2 Tablets (650 mg) by mouth every 4 hours if needed for Pain (For mild pain.). Max acetaminophen dose: 4000mg in 24 hrs. 40 Tablet 02/21/2023 Active ALPRAZolam (XANAX) 0.5 mg tablet Take 0.5 mg by mouth at bedtime if needed. Active ALPRAZolam (XANAX) 0.5 mg tablet Take 0.5 mg by mouth 2 times daily if needed. Active sennosides (SENNA) 8.6 mg tabletIndications:Hx of diverticulitis of colon Take 2 Tablets (17.2 mg) by mouth once daily. 90 Tablet 3 06/23/2023 Active Active Problems Problem Noted Date Diagnosed Date Hx of diverticulitis of colon 06/23/2023 Abdominal pain 02/15/2023 Lumbar facet arthropathy 08/09/2013 [...] Sign Reading Time Taken Comments Blood Pressure 123/79 06/23/2023 12:12 PM CDT Pulse 71 06/23/2023 9:27 AM CDT Temperature 37 ??C (98.6 ??F) 06/23/2023 12: 12 PM CDT Respiratory Rate 18 06/23/2023 12:1 2 PM CDT Oxygen Saturation 94% 06/23/2023 12: 12 PM CDT Inhaled Oxygen Concentration - - Weight 83.8 kg (184 lb 11.2 oz) 06/23/2023 6:27 AM CDT Height 170.2 cm (5' 7) 06/22/2023 10:3 9 AM CDT Body Mass Index 28.93 06/22/2023 10:39 AM CDT Plan of Treatment Health Maintenance Due Date Last Done Comments Tdap 1952 Depression screening for age 12+ 1953 BMI (ht and wt on same day) for age 18+ 1959 Tetanus booster 1961 Zoster (shingles) series for age 50+ (1 of 2) 1991 Pneumococcal series for age 65+ (1 of 1 - PCV) 2006 COVID-19 vaccine series (2022-24 season) 2023 01/21/2023, 09/13/2022, 11/23/2021, Additional history exists Influenza for age 65+ 11/06/2023 Advance Directives * Full Code (Latest Code Status on File) Date Activated Date Inactivated Comments 06/22/2023 10:52 AM 06/23/2023 7:46 PM Question Answer Comments Code Status Discussion: Not Discussed * Full Code Date Activated Date Inactivated Comments 02/15/2023 11:44 PM 02/21/2023 6:10 PM Question Answer Comments Code Status Discussion: Reviewed Preferences Care Teams Bridge Gang Worker Relationship Specialty Start Date End Date Timmy Nova MD [address] [place] [address] PCP - General 08/09/13
--- OUTSIDE RECORDS SUMMARY | 2023-10-04 13:34 | XMS_ITS | Encounter Summary ---
Author Organization [facility] Address [address] [place] [address] Care Team Providers Care Show Host/Hostess Name Role Phone Timmy Nova MD Primary Care Provider [phone]- [phone] Reason for Visit * Reason Comments QUESTIONS, GENERAL Entered automaticall y based on patient selection in [employer]. Encounter Details Date Type Department Care Team (Late st Contact Info) Description 07/11/2023 3:35 PM CDT E-Visit [place] [facility] [place] [address] General Surgery [address] [place] [address] Simeon Graff MD [address] [place] [address] Chief Comp: QUESTIONS, GENERAL Social History Tobacco Use Types Packs/Day Years Used Date Smoking Tobacco: Never Smokeless Tobacco: Never Sex and Gender Information Value Date Recorded Sex Assigned at Not on file Gender Identity Not on file Sexual Orientation Not on file documented as of this encounter Nursing Notes * Cristela Ruiz RN - 07/11/2023 4:39 PM CDT Pt reached. He will keep incision covered with band-aid. Incision rubs in this incision a lot. No redness or purulent drainage noted. He will monitor closely and call if any concerns. documented in this encounter Plan of Treatment Not on file documented as of this encounter Visit Diagnoses Not on filedocumented in this encounter Care Teams Show Host/Hostess Relationship Specialty Start Date End Date Timmy Nova MD [address] [place] [address] PCP - General 06/05/13 documented as of this encounter
--- OUTSIDE RECORDS SUMMARY | 2023-10-04 13:34 | XMS_ITS | Encounter Summary ---
Author Organization [employer] Address [address] [place] [address] Care Team Providers Care Speech Therapist Name Role Phone Timmy Nova MD Primary Care Provider +1- [phone] Reason for Visit * Reason Comments Post-Op Check Encounter Details Date Type Department Care Team ([facility] st Contact Info) Description 07/04/2023 11:10 AM CDT Office Visit [place] [facility] [place] [address] General Surgery [address] [place] [address] Simeon Graff MD [address] [place] [address] Postop check (Primary Dx) Social History Tobacco Use Types Packs/Day Years Used Date Smoking Tobacco: Never Smokeless Tobacco: Never Sex and Gender Information Value Date Recorded Sex Assigned at Not on file Gender Identity Not on file Sexual Orientation Not on file documented as of this encounter Progress Notes * Simeon Graff MD - 07/04/2023 11:10 AM CDT No c/o. Pain ok. Loose stools Abd: soft, NT/ND Wounds: clean, no erythema S/p colostomy closure, doing well. Reg diet, add fiber back in, will help with loose stools. No lifting >20 pounds for two more weeks. Follow up as needed. Simeon Graff MD 11:01 AM 07/04/2023 documented in this encounter Plan of Treatment Not on file documented as of this encounter Visit Diagnoses Diagnosis Postop check- Primary Follow-up examination, following unspecified surgery documented in this encounter Care Teams Speech Therapist Relationship Specialty Start Date End Date Timmy Nova MD [address] [place] [address] PCP - General 06/05/13 documented as of this encounter
--- OUTSIDE RECORDS SUMMARY | 2023-10-04 13:34 | XMS_ITS | Encounter Summary ---
Author Organization [facility] Address [address] [place] [address] Care Team Providers Care Follow Up Rep Name Role Phone Timmy Nova MD Primary Care Provider +1- [phone] Reason for Visit * Reason Comments Follow-up Encounter Details Date Type Department Care Team ([facility] st Contact Info) Description 07/18/2023 10:00 AM CDT Office Visit [facility] [address] General Surgery [address] [place] [address] Simeon Graff MD [address] [place] [address] Visit for wound check (Primary Dx) Social History Tobacco Use Types Packs/Day Years Used Date Smoking Tobacco: Never Smokeless Tobacco: Never Sex and Gender Information Value Date Recorded Sex Assigned at Not on file Gender Identity Not on file Sexual Orientation Not on file documented as of this encounter Progress Notes * Simeon Graff MD - 07/18/2023 10:00 AM CDT Wound opened slightly and drained, missed a staple. Wound scabbed over and no drainage. No erythema. No flcutuance. Staple removed. Follow up as needed. Simeon Graff MD 10:32 AM 07/18/2023 documented in this encounter Plan of Treatment Not on file documented as of this encounter Visit Diagnoses Diagnosis Visit for wound check- Primary Encounter for other specified aftercare documented in this encounter Care Teams Follow Up Rep Relationship Specialty Start Date End Date Timmy Nova MD [address] [place] [address] PCP - General 06/05/13 documented as of this encounter
--- OUTSIDE RECORDS SUMMARY | 2023-10-04 13:34 | XMS_ITS | Encounter Summary ---
Author Organization [facility] Address [address] [place] [address] Care Team Providers Care Typing Checker Name Role Phone Timmy Nova MD Primary Care Provider +1- [phone] Reason for Visit * Reason Comments QUESTIONS, GENERAL Entered automaticall y based on patient selection in [employer]. Encounter Details Date Type Department Care Team (Late st Contact Info) Description 07/11/2023 6:35 PM CDT [facility] [address] [facility] [address] [place] [phone] Simeon Graff MD [address] [place] [address] Chief Comp: QUESTIONS, GENERAL Social History Tobacco Use Types Packs/Day Years Used Date Smoking Tobacco: Never Smokeless Tobacco: Never Sex and Gender Information Value Date Recorded Sex Assigned at Not on file Gender Identity Not on file Sexual Orientation Not on file documented as of this encounter Plan of Treatment Not on file documented as of this encounter Visit Diagnoses Not on filedocumented in this encounter Care Teams Typing Checker Relationship Specialty Start Date End Date Timmy Nova MD [address] [place] [address] PCP - General 06/05/13 documented as of this encounter
--- OUTSIDE RECORDS SUMMARY | 2023-10-04 13:34 | XMS_ITS | Clinical Summary ---
Author Organization [facility] Address [address] [place] [address] Care Team Providers Care Heading Pinner Name Role Phone Timmy Nova MD Primary Care Provider +1- [phone] Source Comments You are receiving this document as you are listed as the primary care provider,follow-up provider, or the patient has been referred to you for consultation.This is in compliance with the Medicare and[facility] EHR Incentive Program,which states Providers who transition their patient to another setting of careor provider of care or refers their patient to another provider of care shouldprovide summary care record for each transition of care or referral. [facility] Allergies No known active allergies Medications Medication Sig Dispensed Refills Start Date End Date Status ALLOPURINOL OR Take 100 mg by mouth daily (every 24 hours). 06/05/2013 Active amoxicillin (AKA AMOXIL) 500 MG capsule Take 4 capsules ( 2 GRAMS) 1 HOUR BEFORE DENTAL APPOINTMENT 12 capsule 0 09/11/2014 Active acetaminophen (TYLENOL) 325 MG tablet Take 2 Tablets (650 mg) by mouth every 4 hours as needed. 02/21/2023 Active FERROUS SULFATE OR Take 1 Tablet by mouth daily. Active ALPRAZolam (XANAX) 0.5 MG tablet Take 1 Tablet (0.5 mg) by mouth two times daily as needed. Active senna (SENOKOT) 8.6 MG tablet Take 2 Tablets (17.2 mg) by mouth. 06/23/2023 Active Active Problems Problem Noted Date Diagnosed Date Acute blood loss anemia 12/25/2013 Encounters Date Type Department Care Team Description 07/18/2023 10:00 AM CDT Office Visit [facility] [address] General Surgery [address] [place] [address] Simeon Graff MD Visit for wound check (Primary Dx) 07/11/2023 6:35 PM CDT E-Visit [facility] [address] General Surgery [address] [place] [address] Simeon Graff MD Chief Comp: QUESTIONS, GENERAL 07/11/2023 3:35 PM CDT E-Visit [facility] [address] General Surgery [address] [place] [phone] Simeon Graff MD Chief Comp: QUESTIONS, GENERAL from Last 3 Months Immunizations Name Administration [...] 12/21/2013 9:14 AM CDT Plan of Treatment Health Maintenance Due Date Last Done Comments Medicare Annual Wellness Visit 1941 DTaP/Tdap/Td (2 - Tdap) 06/06/2022 06/06/2012 COVID-19 Vaccine ( season) 2023 01/21/2023, 09/13/2022, 11/23/2021, Additional history exists Influenza (#1) 2023 12/07/2022, 11/05, 11/26/2020, Additional history exists Pneumococcal 65+ Yrs Completed 12/26/2014, 03/10/2012, 03/07/2011 Zoster/Shingles Completed 01/17/2019, 11/08/2018 HepA Aged Out No longer eligi ble [...] Documents on File Type Date Recorded Patient Nanoscience Technician Expl anation Advance Directive/Living Will/Durable Power of Attny on file/POLST PN * Full Code (Latest Code Status on File) Date Activated Date Inactivated Comments 12/24/2013 4:06 PM 12/26/2013 5:26 PM Care Teams Heading Pinner Relationship Specialty Start Date End Date Timmy Nova MD [address] [place] [address] PCP - General 06/05/13
== END 2023-10-04 13:56 | disposition home or self-care (01) ==
PROVIDERS: Emergency Provider Emergency Medicine; PCP Internal Medicine
DX: K56.41 Fecal impaction (principal)
CPT/HCPCS: 99282; 99283

== ENCOUNTER 2024-04-16 09:01 | Outpatient (CLI) | payer MEDICARE, BC, SELFPAY | END 2024-04-16 09:02 | disposition home or self-care (01) | LOC: NFLDUCREF 09:02 | PROVIDERS: PCP Internal Medicine; Visit Provider Nurse Practitioner | DX: M79.671 Pain in right foot (principal) | CPT/HCPCS: 84550 ==

== ENCOUNTER 2024-09-17 08:58 | Day surgery (SDC) | payer MEDICARE, BC, SELFPAY ==
[2024-09-17] VITALS (22 sets, daily range): BP systolic 91–152; BP diastolic 68–88; PULSE 51–78; RESP 12–18; TEMP 35.8–36.9; O2SAT 90–97; BMI 31.5
[2024-09-17] MEDS: LACTATED RINGERS 1000 ML 1,000 ML 100 ML IV ×3 (09:45→14:11)
[2024-09-17] MEDS: SODIUM CHLORIDE 0.9 % (FLUSH) 10 ML SYRINGE IVF (09:55)
--- NOTE | 2024-09-17 09:58 | W.PM.H&PU ---
History & Physical Update History & Physical Update H&P Reviewed and patient assessed: No changes noted
[2024-09-17] MEDS: OXYCODONE (CR) 10 MG TAB.ER.12H PO (10:55)
[2024-09-17] MEDS: ACETAMINOPHEN 500 MG TABLET 1000 MG PO ×3 (10:55→23:32)
--- NOTE | 2024-09-17 10:56 | SUR.PREOP ---
TIME?OUT:?1028 PT/RN/MDA?VERIFICATION?OF?SURGICAL?SITE,?PROCEDURE,?AND?CONSENT OBTAINED?PRIOR?TO?INVASIVE?PROCEDURE.
--- NOTE | 2024-09-17 11:00 | CRLHL7_ITS ---
For Patients: As a result of the Cures Act, medical imaging exams and procedure reports are released immediately into your electronic medical record. You may view this report before your referring provider. If you have questions, please contact your health care provider. Indication: Hip replacement surgery Technique: AP hip fluoroscopic image. Fluoroscopy time 42.0 seconds. Findings/Impression: Hardware from a right total hip arthroplasty is in satisfactory position. Dictated by Alan Alexandra MD @ 09/18/2024 8:25:03 AM (Electronically Signed)
[2024-09-17] MEDS: MIDAZOLAM HCL 1 MG/ML inj IVP (11:01)
--- NOTE | 2024-09-17 11:52 | CRLHL7_ITS ---
For Patients: As a result of the Cures Act, medical imaging exams and procedure reports are released immediately into your electronic medical record. You may view this report before your referring provider. If you have questions, please contact your health care provider. Indication: Postop right hip Technique: AP hip centered to pelvis and lateral view right hip Findings/Impression: Hardware from a right total hip arthroplasty is in satisfactory position. Bone alignment is normal. No sign of acute fracture. Postop changes are within normal limits. Dictated by Alan Alexandra MD @ 09/18/2024 8:22:51 AM (Electronically Signed)
[2024-09-17] MEDS: TRANEXAMIC ACID 100 MG/ML INJ 1000 MG IV (11:55)
--- NOTE | 2024-09-17 13:10 | PM.ORPRC ---
Procedure Note Date of procedure: 09/17/24 Procedure: PREOPERATIVE DIAGNOSIS: 1. Right hip osteoarthritis, severe, primary POSTOPERATIVE DIAGNOSIS: 1. Right hip osteoarthritis, severe, primary PROCEDURE: 1. Right total hip arthroplasty-anterior approach 2. [address] - intraoperative fluoroscopy up to 1 hour. SURGEON: Dameon Yee MD. ELEMENTARY INSTRUCTIONAL COACH: Alvarez Hilario PA-C; LORENE Hare - Of note, a skilled corporate administrative assistant was critical for this case to aid in patient positioning, tissue retraction, limb manipulation/positioning, and closure. ANESTHESIA: Spinal anesthetic EBL: 400 mL IMPLANTS: DePuy J&J uncemented total hip [place] cup size 54, hole eliminator, +4 neutral liner Actis stem, high offset, size 6 +1.5 mm ceramic 36 mm head COMPLICATIONS: None evident INDICATIONS: The patient is a pleasant 84-year-old male who has experienced severe right hip pain and difficulty bearing weight. Workup included x-rays which revealed severe osteoarthrosis in the hip. Given the deformity, the dysfunction, and the pain, as well as the failure of nonoperative management, recommendation was made for surgery. FINDINGS: Full-thickness chondral loss diffusely throughout the femoral head and acetabulum. Moderate effusion upon entering the joint. Osteophytosis around the femoral head/neck junction and perimeter of the acetabulum. DESCRIPTION OF PROCEDURE: Following a thorough discussion of risks, benefits, and alternatives consent was obtained and the right hip was marked. The patient was brought to the operating room and placed supine on the operating table. Induction of anesthesia was undertaken. 2 g IV Ancef and 1 g tranexamic acid was administered within 1 hr of incision preoperatively. Proper time-out was performed identifying proper patient, site, procedure. The operative extremity was prepped and draped in the appropriate sterile fashion using ChloraPrep after the patient was positioned on the [place] table with head in neutral alignment and all bony prominences well padded. C-arm fluoroscopic imaging was utilized to confirm proper pelvis rotation and position, and to get true AP films of both the contralateral left, and the affected right hip. This is for comparison. A longitudinal incision was made starting approximately 1 cm distal to the ASIS, and 3-4 cm lateral. The incision was extended distally aiming toward the lateral border the patella. Sharp incision through skin and bovie cautery through the subcutaneous tissue allowed identification of the TFL fascia. This was sharply divided, and the fascia bluntly released from the muscle fibers as we dissected medial. Upon coming to the medial border, we were able to retract the TFL laterally, and penetrated the deeper fascia and identify the crossing circumflex vessels. These were ligated/cauterized. The rectus was elevated from the capsule, and retractors placed laterally and medially along the femoral neck to help with visualization of the capsule. We then performed an inverted T capsulotomy. The capsule was tagged for later repair. Retractors were placed inside the capsule. The femoral neck was visualized after releasing medially down to the lesser trochanter, along the saddle laterally, and up onto the acetabulum. The femoral neck cut was made in line with our preoperative templating. The head was removed in a single piece, and sized. We turned our attention to acetabular preparation. Initially, the labrum was resected from around the perimeter, the pulvinar was excised, allowing us to visualize the false wall. We started the reaming with a 43 mm reamer. This was medialized down to the true wall. We then enlarged our reamers sequentially up to one size less than the selected cup size. We trialed at the same size and found it to have an excellent fit. The selected cup was then opened, inserted, and impacted in line with the goal of 40? of abduction, and 20-25? of anteversion. This was confirmed on C-arm fluoroscopic imaging to be in the appropriate/goal position. Once the cup was placed we placed a hole eliminator and a liner consistent with preop planning. Attention was turned to the femoral preparation. The limb was extended, externally rotated, and adducted. The posteromedial capsule was released, as retractors were placed allowing excellent access to the proximal femur. Initially a boxing trainer was followed by canal finder followed by various broaches. We broached sequentially up to the size noted above, found it to have excellent rotational control, and trialing various heads and necks, revealed that appropriate neck offset, and the above noted head size provided the greatest stability, and worship of length, and offset. C-arm fluoroscopic imaging confirmed position of the stem, as well as leg lengths, which were compared with the pre procedure all fluoroscopic images. Trial implants were removed, the real femoral stem inserted, as was the appropriate head. After reducing, the leg was placed through range of motion and stability was confirmed anterior, posterior, and lateral. A 3 min Betadine soak was then performed, and thorough irrigation with normal saline followed. Closure of the capsule was performed with #1 PDS. Bleeding was confirmed to be controlled at this stage, and the TFL fascia was closed with #0 strata fix. Subcutaneous, and subcuticular closure was performed with 2-0 Stratafix and 4-0 Stratafix, respectively. Dressings were applied, and the patient was awoken from anesthesia and transferred the PACU in stable condition. A skilled corporate administrative assistant was critical for this case to aid in patient positioning, tissue retraction, acetabular and proximal femoral exposure, limb manipulation/positioning, dislocation/relocation, patient safety, and closure. PLAN: 1. Weight bear as tolerated operative extremity. 2. 23 hr perioperative antibiotics. 3. Ice. 4. PT/OT consults for ambulation assistance/mobility education. 5. Social work consult for discharge planning. 6. DVT prophylaxis with at SCDs and Xarelto for a total of 1 month.
--- NOTE | 2024-09-17 13:42 | P.ANES_ITS ---
Anesthesia Charges Start Date/Time Anesthesia Start Date: 09/17/24 Anesthesia Start Time: 11:26 Stop Date/Time Anesthesia Stop Date: 09/17/24 Anesthesia Stop Time: 14:00 Summary Extremes of Age - Over 70 or under 1: MDA Coding CPT Codes CPT Codes: ANESTH HIP ARTHROPLASTY - 89581 ([id number]) P2 - PATIENT W/MILD SYST DISEASE, QK - RECREATIONAL VEHICLE REPAIRER 2-4 CNCRNT ANES PROC, QX - DRUGLESS PHYSICIAN SVC W/ MD MED DIRECTION Additional Codes: Summary - Extremes of Age - Over 70 or under 1: MDA ([id number])
--- NOTE | 2024-09-17 13:42 | P.NB_ITS ---
Nerve Block Nerve Block Time Seen by Provider: 11:02 Date Seen: 09/17/24 Type of block requested by surgeon for post-operative analgesia: STEPHY/LFCN Side: right Time out performed: Yes Verification of patient name: Yes Verification of date of : Yes Site marking: site marked Name of person performing procedure: Mook Continuous monitoring Was continuous monitoring of O2 sat, B/P, monitoring specialist, recorded every 15 minutes?: Yes Procedure Checklist: sterile prep, needles and gloves Ultrasound guided. Images saved: Yes Medications given in 5ml increments after negative aspiration: Ropivicaine %: 0.5 mL: 30 Needle gauge: 20 Precedex (mcg): 25 Patient tolerated procedure well: Yes Additional comments: Needle noted below psoas tendon needle noted adjacent to LFCN Block Charges Block Charge (with Pro Fee): Other Periph Nerve Block Use of Ultrasound Machine for Block: Yes- US Guidance/pain block
--- NOTE | 2024-09-17 13:42 | W.ANESCHARGE ---
Anesthesia Charges Start Date/Time Anesthesia Start Date: 09/17/24 Anesthesia Start Time: 11:26 Stop Date/Time Anesthesia Stop Date: 09/17/24 Anesthesia Stop Time: 14:00 Summary Extremes of Age - Over 70 or under 1: MDA Coding CPT Codes CPT Codes: ANESTH HIP ARTHROPLASTY - 97752 ([id number]) P2 - PATIENT W/MILD SYST DISEASE, QK - AIRPLANE PILOT HELPER 2-4 CNCRNT ANES PROC, QX - CLASSROOM MONITOR SVC W/ MD MED DIRECTION Additional Codes: Summary - Extremes of Age - Over 70 or under 1: MDA ([id number])
--- NOTE | 2024-09-17 14:00 | P.ANES_ITS ---
Anesthesia Charges Start Date/Time Anesthesia Start Date: 09/17/24 Anesthesia Start Time: 11:26 Stop Date/Time Anesthesia Stop Date: 09/17/24 Anesthesia Stop Time: 14:00 Summary Extremes of Age - Over 70 or under 1: PRODUCTION CONTROL SCHEDULER Coding CPT Codes CPT Codes: ANESTH HIP ARTHROPLASTY - 42761 ([id number]) P2 - PATIENT W/MILD SYST DISEASE, QX - PRODUCTION CONTROL SCHEDULER SVC W/ MD MED DIRECTION, QK - PLANT MECHANIC 2-4 CNCRNT ANES PROC Additional Codes: Summary - Extremes of Age - Over 70 or under 1: PRODUCTION CONTROL SCHEDULER ([id number])
--- NOTE | 2024-09-17 14:00 | W.ANESCHARGE ---
Anesthesia Charges Start Date/Time Anesthesia Start Date: 09/17/24 Anesthesia Start Time: 11:26 Stop Date/Time Anesthesia Stop Date: 09/17/24 Anesthesia Stop Time: 14:00 Summary Extremes of Age - Over 70 or under 1: PHILANTHROPY OFFICER Coding CPT Codes CPT Codes: ANESTH HIP ARTHROPLASTY - 48369 ([id number]) P2 - PATIENT W/MILD SYST DISEASE, QX - PHILANTHROPY OFFICER SVC W/ MD MED DIRECTION, QK - BELLMAN CAPTAIN 2-4 CNCRNT ANES PROC Additional Codes: Summary - Extremes of Age - Over 70 or under 1: PHILANTHROPY OFFICER ([id number])
--- NOTE | 2024-09-17 17:17 | P.IMCN_ITS ---
Date of Consult Patient: [facility] Patient Consult date: 09/17/24 Requesting Physician: Orthopedics Primary Care Provider: Timmy Nova MD Consult Narrative Narrative: Ivan Hagen is a 84 year old male admitted to the hospital for right total hip arthroplasty. Procedure performed by Dr. Yee. No operative complications. Estimated blood loss [address] Yee requests consultation for management of medical problems. Postoperatively patient reports feeling well. No significant pain, dyspnea or nausea. Patient reports he was doing well before surgery and has no other si gnificant concerns about his health status. Review of Systems Narrative: No recent injury or illness. [facility] Medical History (Updated 09/17/24 @ 17:24 by Kiko Johnson MD) Gout ?M10.9 - Gout, unspecified (ICD-10) Ureteric colic ?N23 - Unspecified renal colic (ICD-10) Colostomy complication, unspecified ?K94.00 - Colostomy complication, unspecified (ICD-10) Irritant contact dermatitis related to fecal or urinary stoma or fistula ?L24.B3 - Irritant contact dermatitis related to fecal or urinary stoma or fistula (ICD-10) Anxiety about knowledge deficit ?R45.89 - Other symptoms and signs involving emotional state (ICD-10) Colostomy in place ?Z93.3 - Colostomy status (ICD-10) Osteoarthritis of right hip ?M16.11 - Unilateral primary osteoarthritis, right hip (ICD-10) Osteoarthritis of left hip ?M16.12 - Unilateral primary osteoarthritis, left hip (ICD-10) DVT (deep venous thrombosis) ?I82.409 - Acute embolism and thrombosis of unspecified deep veins of unspecified lower extremity (ICD-10) Anxiety ?F41.9 - Anxiety disorder, unspecified (ICD-10) Hip pain ?M25.559 - Pain in unspecified hip (ICD-10) Physician orders for life-sustaining treatment (POLST) form indicates patient wish for full code resuscitation status ?Z78.9 - Other specified health status (ICD-10) Diverticulitis of colon with perforation ?K57.20 - Diverticulitis of large intestine with perforation and abscess without bleeding (ICD-10) Insomnia ?G47.00 - Insomnia, unspecified (ICD-10) Bowel obstruction ?K56.609 - Unspecified intestinal obstruction, unspecified as to partial versus complete obstruction (ICD-10) Squamous cell carcinoma Surgical History (Updated 09/17/24 @ 17:24 by Kiko Johnson MD) 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 She is healthcare power of claim attorney. Code status is DNR. He does not smoke. He does not drink alcohol. Their home has a couple steps to get in but then he can live on 1 level. 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 What is your current living situation?: I presently have a place to live Problems where you live: no known problems Problems where you live details: na In the past 12 months, utilities in danger of being shut off: no In past 12 months, lack of transportation kept you from medical appts, meetings, work, or getting things needed for daily living: no In the past 12 mos, have been you worried that your food would run out before you had money to buy more?: never true In the past 12 mos, the food you bought just didn't last and you didn't have money to buy more?: never true Smoking Status: Never smoker Do you use any of these nicotine containing products: None Second hand tobacco smoke exposure: No How often do you have a drink containing alcohol: never How often do you have six or more drinks on one occasion: Never AUDIT-C Alcohol total score: 0 Non-prescribed substance use: denies use Caffeine: Yes How often does anyone, including family, friends and others, physically hurt you : never How often does anyone, including family, friends and others, insult or talk down to you: never How often does anyone, including family, friends and others, threaten you with harm: never How often does anyone, including family, friends and others, scream or curse at you: never service: No Meds Home Medications and Allergies Home Medications ?Medication ?Instructions ?Recorded ?Confirmed ?Type alprazolam 1 mg tablet 1 mg PO QHS #20 tabs 5 09/17/24 Rx Allergies Allergy/AdvReac Type Severity Reaction Status Date / Time No Known Drug Allergies Allergy Verified 09/17/24 09:21 Exam Narrative: Exam Narrative: He is alert and appears in no distress. Oropharynx with small airway. Neck is supple without mass or adenopathy. Respirations are clear to auscultation. Breathing is unlabored. Cardiovascular: S1, S2, regular rate and rhythm. Abdomen: Bowel sounds active. Abdomen is soft without tenderness or mass. For Extremities with intact pulses and sensation, motion and strength including both feet and ankles. Const: Vital Signs, click to edit/add: Vital Signs - 24 hr 09/17/24 09:45 09/17/24 11:00 09/17/24 13:56 Temperature 98.4 F 97.6 F Pulse Rate 72 51 L 58 L Pulse Rate [Right Pulse Oximeter] Respiratory Rate 16 14 18 Blood Pressure 126/80 135/86 99/68 Blood Pressure [Le ft Arm] Pulse Oximetry 95 95 93 Oxygen Delivery Me thod Room Air Room Air Non Rebreather Mas k Oxygen Flow Rate 10 09/17/24 14:00 09/17/24 14:05 09/17/24 14:10 Temperature Pulse Rate 54 L 57 L 59 L Pulse Rate [Right Pulse Oximeter] Respiratory Rate 16 16 13 Blood Pressure 97/75 91/72 100/69 Blood Pressure [Le ft Arm] Pulse Oximetry 96 96 95 Oxygen Delivery Me thod Non Rebreather Mas k Room Air Oxygen Flow Rate 10 09/17/24 14:15 09/17/24 14:20 09/17/24 14:25 Temperature Pulse Rate 55 L 55 L 56 L Pulse Rate [Right Pulse Oximeter] Respiratory Rate 14 13 16 Blood Pressure 108/70 105/83 111/73 Blood Pressure [Le ft Arm] Pulse Oximetry 90 92 96 Oxygen Delivery Me thod OxyMask Nasal Cannula Oxygen Flow Rate 10 5 3 09/17/24 14:30 09/17/24 14:35 09/17/24 14:50 Temperature 97.8 F 96.5 F L Pulse Rate 51 L 52 L 51 L Pulse Rate [Right Pulse Oximeter] Respiratory Rate 12 13 18 Blood Pressure 116/73 113/73 110/80 Blood Pressure [Le ft Arm] Pulse Oximetry 97 95 95 Oxygen Delivery Me thod Room Air Oxygen Flow Rate 09/17/24 15:30 09/17/24 15:45 09/17/24 16:15 Temperature 96.8 F L Pulse Rate Pulse Rate [Right Pulse Oximeter] 58 L 53 L 59 L Respiratory Rate 16 16 16 Blood Pressure Blood Pressure [Le ft Arm] 120/78 126/81 125/87 Pulse Oximetry 97 94 93 Oxygen Delivery Me thod Room Air Room Air Room Air Oxygen Flow Rate 09/17/24 16:45 Temperature Pulse Rate Pulse Rate [Right Pulse Oximeter] 57 L Respiratory Rate 16 Blood Pressure Blood Pressure [Le ft Arm] 116/73 Pulse Oximetry 95 Oxygen Delivery Me thod Room Air Oxygen Flow Rate Documenting provider has reviewed patient's vital signs: yes Assessment and Plan Assessment and plan (1) History of total right hip replacement: Problem comment: Right total hip arthroplasty-anterior approach. Dr. Yee, 09/17/24 Status: Acute (2) Anxiety: Status: Acute (3) Diverticulitis of colon with perforation: Problem comment: He had a bowel obstruction caused by diverticulitis. This required urgent surgery with placement of a colostomy. Subsequently had colostomy takedown. Has had some constipation since that time. Will need to monitor bowel function with management of current surgical pain and laxatives. Status: Acute (4) Insomnia: Problem comment: Caution with sedatives for insomnia along with opioids. Status: Acute Plan Patient is admitted to the hospital for surgery and recovery from surgery with monitoring of medical problems. Anticipate discharge to home with his tomorrow. Total Time Spent Total Time Spent: Total time spent today is 35 minutes in reviewing outside records, coordination of care, discussion of ongoing management of hip surgery and rehabilitation.
[2024-09-17] MEDS: CEFAZOLIN 2 GM in 0.9 % SODIUM CHLORIDE Mini-bag 100 ML IVPB (17:44)
[2024-09-17] MEDS: ONDANSETRON 2 MG/ML inj 4 MG IVP (19:21)
[2024-09-17] MEDS: LACTATED RINGERS 1000 ML 1,000 ML 75 ML IV (19:25)
[2024-09-17] MEDS: SENNOSIDES 1 TAB TABLET 2 TAB PO (21:19)
--- NOTE | 2024-09-18 00:38 | PC.NURSE ---
End of Shift: Patient pleasant and cooperative. Afebrile. Dressing to right hip C/D/I. CMS intact. Rating pain up to 6/10 and PRN Dilaudid and oxycodone given x1. Up to bathroom with 1 assist, walker and gait belt. Tolerating regular diet with no nausea.
[2024-09-18] MEDS: CEFAZOLIN 2 GM in 0.9 % SODIUM CHLORIDE Mini-bag 100 ML IVPB (02:02)
[2024-09-18 02:30] VITALS: BP 117/68; PULSE 60; RESP 16; TEMP 36.8; O2SAT 92
[2024-09-18] MEDS: ONDANSETRON 2 MG/ML inj 4 MG IVP (02:49)
[2024-09-18] MEDS: ACETAMINOPHEN 500 MG TABLET 1000 MG PO (05:35)
[2024-09-18 06:15] LABS: Hematocrit 38.6 % (37.0-53.0); Hemoglobin* 12.8 gm/dL (13.5-17.5); Immature Granulocytes Pct Auto 1.3 %; Mean Corpuscular HGB Conc 33 gm/dL (32-36); Mean Corpuscular Hemoglobin 31 pg (26-34); Mean Corpuscular Volume 94 fL (80-100); RDW Coefficient of Variation % 12.2 % (11.5-15.5); Red Blood Count 4.11 m/uL (4.30-5.90); White Blood Count* 13.59 K/uL (4.50-11.00)
--- NOTE | 2024-09-18 06:23 | PC.NURSE ---
Pt alert and oriented x3. Afebrile. Pt reports tolerating 0-2/10 pain in right hip, managed with Ice pack, scheduled and PRN medications. Pt reported nausea, managed with PRN medication. Pt?s right hip dressing is CDI. Pt?SBA with walker and gait belt, voiding and tolerating a regular diet. Pt reports passing gas. ?
[2024-09-18 06:33] LABS: Chloride* 101 mmol/L (96-114); Potassium* 4.3 mmol/L (3.6-5.1); Sodium* 133 mmol/L (135-149)
[2024-09-18 06:36] LABS: Anion Gap 10 mEq/L (7-15); Blood Urea Nitrogen* 15 mg/dL (7-30); Calcium* 8.6 mg/dL (8.4-10.6); Carbon Dioxide* 22 mmol/L (20-32); Creatinine* 0.9 mg/dL (0.5-1.5); Est. Creatinine Clearance* 48.69; Estimated Glomerular Filt Rate 85 ml/min; Glucose* 135 mg/dL (60-115)
[2024-09-18 06:40] LABS: Immature Granulocytes Abs Auto 0.20 K/uL (0.00-0.30); Lymphocytes Absolute Auto 1.10 K/uL (0.90-2.90); Slide Review Reflex Yes
[2024-09-18 06:41] LABS: Slide Review Acceptable Review (Acceptable)
[2024-09-18 07:00] VITALS: RESP 18; O2SAT 93
[2024-09-18 07:30] VITALS: BP 115/69; PULSE 72; RESP 18; TEMP 37.1; O2SAT 93
--- NOTE | 2024-09-18 08:27 | PC.SOCIAL ---
Discharge planning: SW met with patient and patient's to determine if there are any resources or supports needed at home for discharge. Patient and both state they have no needs or concerns. SW to assist if needs arise.
[2024-09-18] MEDS: SENNOSIDES 1 TAB TABLET 2 TAB PO (08:31)
[2024-09-18] MEDS: RIVAROXABAN 10 MG TABLET PO (08:31)
--- NOTE | 2024-09-18 11:17 | PM.ORPN ---
Subjective Subjective Date Seen: 09/18/24 Principal diagnosis: Status postop day 1, right total hip arthroplasty - anterior approach Interval history: Patient reports doing well. No acute events over night. Pain managed with scheduled and PRN medications, ice. DVT prophylaxis: SCDs, walking, Rivaroxaban for 1 month due to history of provoked left lower extremity DVT post prostate surgery, they states resulted in a very painful swollen left calf. Denies fevers, chills, aches, N/V, CP, SOB/CENTENO, or lightheadedness. Passing flatus. They are concerned with the kat of rivaroxaban at 500 dollars for a month. Ortho Exam Narrative Exam Narrative: -Patient appears comfortable in recliner; no apparent acute distress. present. -Alert and oriented times 3 -Operative hip swollen; soft tissues supple; no obvious erythema. Ecchymosis minimal. Warmth appropriate -Surgical dressing clean, dry, intact; no obvious drainage, no erythematous streaking peripheral to the bandage -Bilateral calves soft and supple; no significant swelling, edema, tenderness, erythema, discoloration, warmth, or palpable cords -2+ DP/PT pulses, intact dermatomes and myotomes distally (5/5 strength). No numbness about the lateral femoral cutaneous nerve distribution. Const Vital Signs, click to edit/add: Vital Signs - 24 hr 09/17/24 13:56 09/17/24 14:00 09/17/24 14:05 Temperature 97.6 F Pulse Rate 58 L 54 L 57 L Pulse Rate [Right Pulse Oximeter] Respiratory Rate 18 16 16 Blood Pressure 99/68 97/75 91/72 Blood Pressure [Left Arm] Blood Pressure [Right Arm] Pulse Oximetry 93 96 96 Oxygen Delivery Method Non Rebreather Mask Non Rebreather Mask Room Air Oxygen Flow Rate 10 10 09/17/24 14:10 09/17/24 14:15 09/17/24 14:20 Temperature Pulse Rate 59 L 55 L 55 L Pulse Rate [Right Pulse Oximeter] Respiratory Rate 13 14 13 Blood Pressure 100/69 108/70 105/83 Blood Pressure [Left Arm] Blood Pressure [Right Arm] Pulse Oximetry 95 90 92 Oxygen Delivery Method OxyMask Nasal Cannula Oxygen Flow Rate 10 5 09/17/24 14:25 09/17/24 14:30 09/17/24 14:35 Temperature 97.8 F Pulse Rate 56 L 51 L 52 L Pulse Rate [Right Pulse Oximeter] Respiratory Rate 16 12 13 Blood Pressure 111/73 116/73 113/73 Blood Pressure [Left Arm] Blood Pressure [Right Arm] Pulse Oximetry 96 97 95 Oxygen Delivery Method Oxygen Flow Rate 3 09/17/24 14:50 09/17/24 15:30 09/17/24 15:45 Temperature 96.5 F L 96.8 F L Pulse Rate 51 L Pulse Rate [Right Pulse Oximeter] 58 L 53 L Respiratory Rate 18 16 16 Blood Pressure 110/80 Blood Pressure [Left Arm] 120/78 126/81 Blood Pressure [Right Arm] Pulse Oximetry 95 97 94 Oxygen Delivery Method Room Air Room Air Room Air Oxygen Flow Rate 09/17/24 16:00 09/17/24 16:15 09/17/24 16:45 Temperature Pulse Rate Pulse Rate [Right Pulse Oximeter] 56 L 59 L 57 L Respiratory Rate 16 16 16 Blood Pressure Blood Pressure [Left Arm] 125/87 116/73 Blood Pressure [Right Arm] Pulse Oximetry 93 95 Oxygen Delivery Method Room Air Room Air Oxygen Flow Rate 09/17/24 18:00 09/17/24 19:00 09/17/24 20:00 Temperature 97.5 F L Pulse Rate Pulse Rate [Right Pulse Oximeter] 67 56 L 59 L Respiratory Rate 18 16 16 Blood Pressure Blood Pressure [Left Arm] 139/76 115/73 121/82 Blood Pressure [Right Arm] Pulse Oximetry 94 92 96 Oxygen Delivery Method Room Air Room Air Room Air Oxygen Flow Rate 09/17/24 21:00 09/17/24 23:00 09/17/24 23:00 Temperature 98.1 F Pulse Rate Pulse Rate [Right Pulse Oximeter] 78 78 Respiratory Rate 18 18 Blood Pressure Blood Pressure [Left Arm] 152/88 H Blood Pressure [Right Arm] Pulse Oximetry 91 91 Oxygen Delivery Method Room Air Room Air Oxygen Flow Rate 09/18/24 02:30 09/18/24 07:00 09/18/24 07:30 Temperature 98.3 F 98.7 F Pulse Rate Pulse Rate [Right Pulse Oximeter] 60 72 Respiratory Rate 16 18 18 Blood Pressure Blood Pressure [Left Arm] 117/68 Blood Pressure [Right Arm] 115/69 Pulse Oximetry 92 93 93 Oxygen Delivery Method Room Air Room Air Room Air Oxygen Flow Rate 09/18/24 07:30 Temperature Pulse Rate Pulse Rate [Right Pulse Oximeter] 72 Respiratory Rate 18 Blood Pressure Blood Pressure [Left Arm] Blood Pressure [Right Arm] Pulse Oximetry Oxygen Delivery Method Oxygen Flow Rate Assessment and Plan Assessment and plan (1) History of total right hip replacement: Problem details: Right total hip arthroplasty-anterior approach. Dr. Yee, 09/17/24 Status: Acute (2) Anxiety: Status: Acute (3) Diverticulitis of colon with perforation: Problem details: He had a bowel obstruction caused by diverticulitis. This required urgent surgery with placement of a colostomy. Subsequently had colostomy takedown. Has had some constipation since that time. Will need to monitor bowel function with management of current surgical pain and laxatives. Status: Acute (4) Insomnia: Problem details: Caution with sedatives for insomnia along with opioids. Status: Acute Plan - Complete 23 hour perioperative antibiotics. - PT/OT consult for education and assistance. - Social work consult for discharge planning - Prescribed analgesics as needed - DVT prophylaxis: Rivaroxaban for 30 days, walking, and SCDs. While I understand the cost of her aspect, it is important to decrease risk of DVT postop. Shared that apixaban will likely be the same if not more costly. - Anticipation is for discharge to home with today 09/18/2024 if the patient remains medically stable, pain is controlled, and they are safe with mobilization.
--- NOTE | 2024-09-18 11:40 | PC.NURSE ---
End of Shift: Patient pleasant and cooperative, A&O. VSS, afebrile. Dressing to right hip C/D/I. CMS intact. Tolerating regular diet, denies nausea. IV removed with tip intact. Discharge instructions provided, all questions answered. D/C to home with .
== END 2024-09-18 11:15 | disposition home or self-care (01) ==
LOC: OR 09:00 → MEDSURG 15:35
PROVIDERS: Family Medicine; PCP Internal Medicine; Visit Provider Orthopaedic Surgery Sports Medicine
PROC: (CPT 27130; principal; 2024-09-17 11:00)
DX: M16.11 Unilateral primary osteoarthritis, right hip (principal); G89.18 Other acute postprocedural pain; Z86.718 Personal history of other venous thrombosis and embolism; F41.9 Anxiety disorder, unspecified; G47.00 Insomnia, unspecified; K59.00 Constipation, unspecified
CPT/HCPCS: 27130; 01214; 36415; 64450; 73501; 76000; 76942; 80048; 85025; 86850; 86900; 86901; 97110; 97116; 97161; 97165; 97535; 99100; A9270; C1776; J0690; J1100; J1171; J2250; J2405; J2704; J2795; J3010; J3490; J7120

== ENCOUNTER 2024-10-10 11:15 | Outpatient (RCR) | payer MEDICARE, BC, SELFPAY | END 2024-10-10 12:07 | disposition home or self-care (01) | PROVIDERS: PCP Internal Medicine; Visit Provider Orthopaedic Surgery Sports Medicine | DX: Z47.1 Aftercare following joint replacement surgery (principal); Z96.641 Presence of right artificial hip joint; Z51.89 Encounter for other specified aftercare | CPT/HCPCS: 97110; 97112; 97161 ==